=== PATIENT | male | born 1935 | race Caucasian/White ===

== ENCOUNTER → 2019-04-29 | Outpatient (CLI) | payer OTHER ==
--- NOTE | 2019-04-29 13:13 | RADIOLOGY REPORT (SQ) ---
EXAM DESCRIPTION: U/S RETROPERITON (RENAL/AORTA) COMPLETED DATE/TIME: 04/29/2019 11:30 am REASON FOR STUDY: N18.3 CHRONIC KIDNEY DISEASE, STAGE 3 (MODERATE) N18.3 CHRONIC KIDNEY DISEASE, ST AGE 3 (MODERATE) COMPARISON: None. TECHNIQUE: Dynamic and static grayscale images acquired of the kidneys and bladder and recorded on P ACS. Additional selected color Doppler and spectral images recorded. LIMITATIONS: None. FINDINGS: RIGHT KIDNEY: Normal size, 12.5 cm. Normal echogenicity. Cortical thinning. No solid or suspicious masses. 14 mm cyst. No hydronephrosis. No calcifications. LEFT KIDNEY: Surgically absent. BLADDER: c no bladder mass. Prostatic enlargement. OTHER FINDINGS: No other significant finding. IMPRESSION: Cortical thinning in the solitary remaining right kidney. Enlarged prostate gland. TECHNICAL DOCUMENTATION: JOB ID: [id number] 2010 [employer]- All Rights Reserved Reading location - IP/workstation name: [email or web address]
== END ==
LOC: RAD 10:31
PROVIDERS: ATTEND Internal Medicine Nephrology
DX: N18.3 Chronic kidney disease, stage 3 (moderate) (principal); N40.0 Benign prostatic hyperplasia without lower urinary tract symptoms
CPT/HCPCS: 76770

== ENCOUNTER → 2019-07-31 | Outpatient (CLI) | payer MEDICARE, BC ==
--- NOTE | 2019-07-31 12:12 | RADIOLOGY REPORT (SQ) ---
EXAM DESCRIPTION: CHEST PA/LATERAL IMAGES COMPLETED DATE/TIME: 07/31/2019 10:36 am REASON FOR STUDY: LLL PNEUMONIA; CHF COMPARISON: None. EXAM PARAMETERS: NUMBER OF VIEWS: Two views. TECHNIQUE: PA and lateral views of the chest were obtained. RADIATION DOSE: NA. LIMITATIONS: None. FINDINGS: LUNGS AND PLEURA: There is mild diffuse prominence of the interstitium. The dense opacity in the inferior aspect of the left hemithorax that obscures the contour of the left hemidiaphragm co uld represent a combination of pleural fluid and atelectasis. There is no pneumothorax. MEDIASTINUM AND HILAR STRUCTURES: No mediastinal or hilar contour abnormality. HEART AND VASCULAR STRUCTURES: The cardiac silhouette is enlarged. BONES: No acute findings. HARDWARE: None in the chest. OTHER: No other finding. IMPRESSION: Cardiomegaly, mild diffuse prominence of the interstitium and left pleural effusion. Cl inical correlation for signs and symptoms of volume overload/ CHF is recommended. TECHNICAL DOCUMENTATION: JOB ID: [id number] 2010 [employer]- All Rights Reserved Reading location - IP/workstation name: [email or web address]
== END ==
LOC: OD 10:14
PROVIDERS: ATTEND Internal Medicine
DX: J18.9 Pneumonia, unspecified organism (principal); I50.9 Heart failure, unspecified; I51.7 Cardiomegaly
CPT/HCPCS: 71046

== ENCOUNTER 2019-08-04 17:49 | Inpatient (IN) | payer MEDICARE, BC ==
--- NOTE | 2019-08-04 18:17 | ER Document Report ---
ED General - General Stated Complaint: POSSIBLE STROKE Time Seen by Provider: 08/04/19 17:53 Notes: 83-year-old male brought to the emergency department via EMS for possible stroke. Apparently just 1 hour prior to arrival patient fell several times at home, had left-sided weakness, right-sided facial droop, slurred speech per daughter. EMS states that when they arrived the patient was neurologically intact and alert and oriented x4. Patient denies any pain. Last known normal was 1550 per daughter. TRAVEL OUTSIDE OF THE [place] IN LAST 30 DAYS: No - Related Data Allergies/Adverse Reactions: No Known Allergies Allergy (Unverified 08/04/19 17:55) Past Medical History - General Information source: Patient, Relative - Social History Smoking Status: Unknown if Ever Smoked Family History: Hypertension Review of Systems - Review of Systems Constitutional: No symptoms reported EENT: See HPI - Facial droop Cardiovascular: Other - Fall but no loss consciousness. Respiratory: No symptoms reported Musculoskeletal: See HPI - Hit left elbow in the fall. Neurological/Psychological: See HPI -: Yes All other systems reviewed and negative Physical Exam - Vital signs Vitals: Pulse Resp BP Pulse Ox 110 H 19 166/60 H 97 08/04/19 17:53 08/04/19 17:53 08/04/19 17:53 08/04/19 17:53 - Notes Notes: GENERAL: Alert, interacts well. No acute distress. HEAD: Normocephalic, atraumatic EYES: Pupils equal, round and reactive to light, extraocular movements intact. ENT: Oral mucosa moist, tongue midline. NECK: Full range of motion, supple, trachea midline. LUNGS: Clear to auscultation bilaterally, no wheezes, rales or rhonchi, no respiratory distress. HEART: Regular rate and rhythm, no murmurs, gallops, rubs. ABDOMEN: Soft, nontender, nondistended, bowel sounds present in all 4 quadrants. EXTREMITIES: Moves all 4 extremities spontaneously, no edema, radial and dorsalis pedis pulses 2/4 bilaterally. No cyanosis. NEUROLOGICAL: Awake, disoriented, has some difficulty following commands including being asked to smile. Slow to lift his legs. 3/5 muscle strength in the left upper and lower extremity. Very slight left nasolabial fold flattening but normalizes with smile. Speech is not slurred. See NIH stroke scale for detailed assessment. PSYCH: Normal mood, normal affect. SKIN: Warm, Dry, superficial abrasions to the left elbow. Course - Re-evaluation Re-evalutation: 08/04/19 20:54 This is a late note, patient CT scan of the head came back and did not reveal a bleed, patient has no absolute contraindications to this, CBC and other blood work are not available at this time. Patient has hit to the 3-hour cadence post stroke, discussed with daughter Shy and patient risks and benefits of receiving TPA including approximately 30% chance of improvement and 6 to 8% chance of bleeding into the brain and worsening of condition up to and including . Patient and daughter both request to receive the TPA. Patient was also sent for a CTA of the head and neck to look for possible large vessel occlusion as this is affecting both left upper and lower extremity and patient may be a candidate for mechanical thrombectomy. We did discuss that there is a risk to his remaining kidney as there is a dye load but we will provide gentle hydration. Discussed with patient and daughter that the other option is to not do the CT angiogram and then we will not know whether or not he is a candidate. Patient and daughter agree to CT angiogram of the head and neck. 08/04/19 20:59 After receiving TPA patient initially had some episodes of vomiting which were resolved with Zofran, now at 9 PM the patient is showing improvement, increasing strength in the left arm. Blood work is back and CBC does show anemia with a hemoglobin 8.5 and low platelets of 70 which are a relative contraindication to TPA however we did not delay the administration of the TPA in order to get the platelets back as he was already at the 3-hour cadence. INR slightly prolonged at 1.32, CMP shows a pretty good creatinine of 1.36 considering his history of nephrectomy and other kidney surgery, CO2 slightly low at 21, troponin indeterminate 0.082, EKG is nonischemic. Head CTA 08/04/19 00:00 IMPRESSION: 1. No intracranial aneurysm, stenosis, or branch occlusion. 2. No significant internal carotid artery stenosis by NASCET criteria. 3. Moderate left pleural effusion partially visualized. 4. Prominent mediastinal lymph nodes, indeterminate. Consider dedicated CT of the chest. Neck CTA 08/04/19 00:00 IMPRESSION: 1. No intracranial aneurysm, stenosis, or branch occlusion. 2. No significant internal carotid artery stenosis by NASCET criteria. 3. Moderate left pleural effusion partially visualized. 4. Prominent mediastinal lymph nodes, indeterminate. Consider dedicated CT of the chest. Chest X-Ray 08/04/19 17:53 IMPRESSION: Slight increase in small left basilar pleural effusion with compressive atelectasis/consolidation. Head CT 08/04/19 17:53 IMPRESSION: 1. No acute intracranial hemorrhage, mass, or evidence of acute territorial infarct. 2. Mild chronic small vessel ischemic change. EVIDENCE OF ACUTE STROKE: NO. Elbow X-Ray 08/04/19 17:54 IMPRESSION: NEGATIVE STUDY OF THE LEFT ELBOW. NO RADIOGRAPHIC EVIDENCE OF ACUTE INJURY. Discussed patient with Tomas Franklin the APC from the ICU for possible admission and he is checking to see if we have the capacity in our hospital at this time to accept this patient. 08/04/19 21:25 He accepts the patient to his service in the ICU. Patient and are both aware, I did personally recheck this patient, patient is now able to squeeze my hand, wakes up as soon as I walk into the room and smiles at me, is able to speak without any difficulty. On initial examination I would not of said his speech was slurred however his speech is markedly clearer than it was when I first saw him. - Vital Signs Vital signs: Temp Pulse Resp BP Pulse Ox 98.5 F 94 18 107/95 H 95 08/04/19 18:07 08/04/19 21:00 08/04/19 21:46 08/04/19 21:46 08/04/19 21:46 - Laboratory Result Diagrams: 08/04/19 19:10 08/04/19 18:17 Laboratory results interpreted by me: 08/04/19 08/04/19 08/04/19 18:17 18:17 19:10 RBC 4.30 L Hgb 8.5 L Hct 26.6 L MCV 62 L MCH 19.7 L MCHC 31.9 L RDW 21.0 H Plt Count 70 L PT 16.5 H APTT 61.0 H Chloride 112 H Carbon Dioxide 21 L Creatinine 1.36 H Est GFR (MDRD) Non-Af 50 L Glucose 142 H Alkaline Phosphatase 984 H - EKG Interpretation by Me Additional EKG results interpreted by me: 08/04/19 21:29 EKG shows sinus rhythm with Mobitz type I block, left anterior hemiblock, T wave inversions in the 2 and aVL, no ST segment elevations or depressions, there is poor R wave progression per my interpretation. Critical Care Note - Critical Care Note Total time excluding time spent on procedures (mins): 65 Discharge - Discharge Clinical Impression: Left-sided cerebrovascular accident (CVA), Mobitz (type) I (Wenckebach's) atrioventricular block Abrasion of left arm Qualifiers: Encounter type: initial encounter Qualified Code(s): S40.812A - Abrasion of left upper arm, initial encounter Fall at home Qualifiers: Encounter type: initial encounter Qualified Code(s): W19.XXXA - Unspecified fall, initial encounter Condition: Fair Disposition: ADMITTED INPATIENT Admitting Provider: Emelia (Street Light Servicer Helper) Unit Admitted: ICU ED NIH Stroke Scale - NIH Stroke Scale When completed:: Before Alteplase *: 1. NIH scale should be completed with appropriate accompanying assessment tools. *: 2. The NIH should reflect what the patient is capable of doing and should not be coached by the clinician. 1a. Level of Consciousness: 0=Alert;keenly responsive -: 1=Drowsy -: 2=Obtunded -: 3=Coma/unresponsive or reflex to noxious stimuli. 1a. Responses: 1 1b. Orientation Questions: a. What month is it? -: b. How old are you? -: 0=Answers both questions correctly. -: 1=Answers one question correctly or patient is intubated or has orotracheal trauma. -: 2=Answers neither question correctly. 1b. Responses: 1 1c. Response to commands: a. Open and close eyes? -: b. Manufacturing Plant Technician and release hand? -: Credit is given despite weakness. Demonstration of task is permitted. Substitute command if hands cannot be used. -: 0=Performs both tasks correctly -: 1=Performs one task correctly -: 2=Performs neither task correctly 1c. Responses: 0 2. Gaze: Establish eye contact and instruct patient to "Follow my finger" -: 0=Normal -: 1=Partial gaze palsy. Gaze is abnormal in one or both eyes, but where forced deviation or total gaze paresis is not present. -: 2=Forced deviation or total gaze paresis. 2. Responses: 0 3. Visual Feliz: Sees fingers in all four quadrants. -: 0=No visual loss. -: 1=Partial hemianopsia. -: 2=Complete hemianopsia. -: 3=Bilateral hemianopsia (including Cortical blindness) 3. Responses: 0 4. Facial Movement: Instruct patient to: -: a. Show me your teeth -: b. Raise your eyebrows -: c. Close your eyes -: d. Smile -: 0=Normal symmetrical movement -: 1=Minor paralysis (flattened nasolabial fold, asymmetry on smiling). -: 2=Partial paralysis (total or near total paralysis of lower face). -: 3=Complete paralysis of upper and lower face 4. Responses: 1 5. Motor functions (left arm): Alternate sides and extend each arm with palms down (90 degrees if sitting or 45 degrees for supine). -: 0=No drift;limb holds for full 10 seconds. -: 1=Drift; limb holds but drifts down before full 10 seconds, but does not hit bed. -: 2=Some effort against gravity; limb cannot get to or maintain position. -: 3=No effort against gravity; limb falls. -: 4=No movement. -: UN=Amputation, joint fusion, explain in comments. 5. Responses (left arm): 2 5. Motor Functions (right arm): Alternate sides and extend each arm with palms down (90 degrees if sitting or 45 degrees for supine). -: 0=No drift;limb holds for full 10 seconds. -: 1=Drift; limb holds but drifts down before full 10 seconds, but does not hit bed. -: 2=Some effort against gravity; limb cannot get to or maintain position. -: 3=No effort against gravity; limb falls. -: 4=No movement. -: UN=Amputation, joint fusion, explain in comments. 5. Responses (right arm): 0 6. Motor Functions (left leg): With patient lying supine, alternate sides and extend each leg (30 degrees always while supine). -: 0=No drift, leg holds position for full 5 seconds -: 1=Drift; leg falls before full 5 seconds but does not hit bed. -: 2=Some effort against gravity, leg falls to bed but some effort against gravity. -: 3=No effort against gravity, leg falls to bed immediately. -: 4=No movement. -: UN=Amputation, joint fusion; explain in comments. 6. Responses (left leg): 2 6. Motor Functions (right leg): With patient lying supine, alternate sides and extend each leg (30 degrees always while supine). -: 0=No drift, leg holds position for full 5 seconds -: 1=Drift; leg falls before full 5 seconds but does not hit bed. -: 2=Some effort against gravity, leg falls to bed but some effort against gravity. -: 3=No effort against gravity, leg falls to bed immediately. -: 4=No movement. -: UN=Amputation, joint fusion; explain in comments. 6. Responses (right leg): 0 7. Limb Ataxia: With eyes open instruct patient to: -: a. "Touch your finger to your nose". -: b. "Touch your heel to your rashid" -: 0=Absent -: 1=Present in one limb. -: 2=Present in two limbs. -: UN=Amputation or joint fusion; explain in comments. 7. Responses: 0 8. Sensory: Test sensation using pinprick or noxious stimuli. Test as many body parts as possible. -: 0=Normal;no sensory loss -: 1=Mile to moderate sensory loss (patient feels pin prick but is less sharp on affected side). -: 2=Severe or total sensory loss. 8. Responses: 1 9. Best Language: Instruct patient to: -: a. "Describe what you see in this picture." -: b. "Name the items in this picture." -: c. "Read these sentences." -: 0=No aphasia, normal -: 1=Mild to moderate aphasia. -: 2=Severe aphasia -: 3=Mute, global aphasia, no usable speech or auditory comprehension. 9. Responses: 0 10. Articulation, Dysarthia: Instruct patient to: -: "Read these words" or "Repeat these words" -: 0=Normal -: 1=Mild to moderate; patient may slur some words but can be understood without difficulty. -: 2=Severe; patients speech so slurred as to be unintelligible in the absence of dysphasia. -: UN=Intubated or other physical barrier, explain in comments. 10. Responses: 0 11. Extinction or inattention: 0=No abnormality -: 1= Visual, tactile, auditory, spatial, or personal inattention or extinction to bilateral simulation in one or the sensory modalities. -: 2=Profound blas-inattention or blas-inattention to more than one modality; d oes not recognize own hand. 11. Responses: 0 Total Score: 8 ED Alteplase Inc/Exc Criteria - Date/Time patient last known well: Date/Time: 08/04/2019 15:50 - Date/Time patient arrived in ED: _: 08/04/2019 17:49 - Inclusion Criteria: 1: Patient presented to ED within 3 hours of acute ischemic stroke symptom o nset? -: Yes 2: Did baseline CT exclude intracranial hemorrhage and/or other risk factors? -: Yes 3: Is the age of the patient 18 years of age or greater? -: Yes : If any of the above questions are answered "NO" then stop, patient is not a candidate for Alteplase, : If all of the above questions are answered "YES" then continue with Exclusion Criteria. - Exclusion Criteria: 1: Is there evidence of intracranial hemorrhage on baseline CT? -: No 2: Is there suspicion of subarachnoid hemorrhage (even if CT negative)? -: No 3: Is there a history of serious head trauma, recent previous stroke or [place] within 3 months? -: No 4: Does the patient have a clinical presentation consistent with [place] or post-[place] pericarditis? -: No 5: Is there history of intracranial hemorrhage? -: No 6: On repeated measurement is Systolic BP greater than 185mmHg or Diastolic BP greater that 110 mmHg and is aggressive treatment needed to reduce blood pressure to these limits (e.g. constant infusion of an anti-hypertensive)? -: No 7: Did the patient awake with stroke symptoms? -: No 8: Has the patient had a lumbar puncture or an arterial puncture at a non- compressile site within 7 days? -: No 9: With in the last 14 days did the patient have surgery or major trauma? -: No 10: Is the patient or less than 2 weeks? -: No 11: Was there any active bleeding or acute trauma? -: No 12: Does the patient have intracranial neoplasm, arteriovenous malformation or aneurysm? -: No 13: Does the patient have abnormal glucose (less than 50 or greater than 400mg/dl)? Record glucose in Comment. -: No 14: Patient has rapidly improving symptoms at the time Alteplase is to be Administered. -: No 15: Does the patient have any risks for bleeding, including but not limited to: a.: Current use of Coumadin with PT greater than 15 seconds or INR greater than 1.7. b.: Current use of Pradaxa (Dabigatran). c.: Heparin administereed within the past 48 hours and PTT elevated. d.: Platelet count less than 100,000/mm. e.: Major surgery or serious trauma within 14 days. f.: Gastrointestinal or gynecological urinary bleeding within 14 days. g.: Myocardial Infarction ([place]) within 3 months. : If the answer to any of the above questions is "YES" then stop, the patient is not a candidate for Alteplase. : If the answer to all of the above questions is "NO" then the patient may be eligible for the Administration of Alteplase. : If the patient is noted to have seizure activity at onset of Stroke symptoms; Consult Neurologist for further evaluation. - The patient is: -: Included and is eligible to receive Alteplase. *Initiate bed placement at higher level of care* Reviewed risks & benefits of thrombolytic therapy: I have reviewed the risks and benefits of thrombolytic therapy with the patient and/or his/her family. Yes - Daughter Shy and patient accept TPA -: Excluded and not eligible to receive Alteplase for the above exclusions. -: Excluded and not eligible to receive Alteplase for other reasons (specify in comments): - Diagnosis of TIA: -: Patient presented with transient symptoms that are now resolved and no other neurologic findings are currently present. List symptoms in comments. -: Patient is NOT a candidate for tPA. -: ____(put name in comment) has been consulted for admission and continued evaluation of risk factor assessment.
[2019-08-04 18:36] LABS: INTERNATIONAL RATION (INR) 1.32; PROTHROMBIN TIME 16.5 SEC (11.4-15.4)
--- NOTE | 2019-08-04 18:36 | RADIOLOGY REPORT (SQ) ---
EXAM DESCRIPTION: CT HEAD WITHOUT IMAGES COMPLETED DATE/TIME: 08/04/2019 5:11 pm REASON FOR STUDY: possble CVA, left weakness, fall at home COMPARISON: None. TECHNIQUE: Axial images acquired through the brain without intravenous contrast. Images reviewed wi th bone, brain and subdural windows. Additional sagittal and coronal reconstructions were generated. Images stored on PACS. All CT scanners at this facility use dose modulation, iterative reconstruction, and/or weight based d osing when appropriate to reduce radiation dose to as low as reasonably achievable (ALARA). [facility]: Dose Right [facility]: CareDose [facility]: Dose Right [facility]: Teradose 4D [facility]: Smart FetchDog RADIATION DOSE: CT Rad equipment meets quality standard of care and radiation dose reduction techniq ues were employed. CTDIvol: 53.2 mGy. DLP: 1017 mGy-cm. mGy. LIMITATIONS: None. FINDINGS: VENTRICLES: Normal size and contour. CEREBRUM: No masses. No hemorrhage. No midline shift. No evidence for acute infarction. Normal gra y-white matter differentiation. Mild patchy periventricular and deep white matter hypodense attenuat ion consistent with mild chronic small vessel ischemic change. CEREBELLUM: No masses. No hemorrhage. No alteration of density. No evidence for acute infarction. EXTRAAXIAL SPACES: No fluid collections. No masses. ORBITS AND GLOBE: No intra- or extraconal masses. Normal contour of globe without masses. CALVARIUM: No fracture. PARANASAL SINUSES: No fluid or mucosal thickening. SOFT TISSUES: No mass or hematoma. OTHER: No other significant finding. IMPRESSION: 1. No acute intracranial hemorrhage, mass, or evidence of acute territorial infarct. 2. Mild chronic small vessel ischemic change. EVIDENCE OF ACUTE STROKE: NO. COMMENT: Findings were called to Dr. Molina on 08/04/2019 at 1827 hours. Quality ID # [id number]: Final reports with documentation of one or more dose reduction techniques (e.g., Au tomated exposure control, adjustment of the mA and/or kV according to patient size, use of iterative reconstruction technique) TECHNICAL DOCUMENTATION: JOB ID: [id number] 2010 [employer]- All Rights Reserved Reading location - IP/workstation name: [email or web address]
--- NOTE | 2019-08-04 18:37 | RADIOLOGY REPORT (SQ) ---
EXAM DESCRIPTION: ELBOW LEFT AP/LATERAL IMAGES COMPLETED DATE/TIME: 08/04/2019 5:19 pm REASON FOR STUDY: fell on left elbow COMPARISON: None. NUMBER OF VIEWS: Two views TECHNIQUE: AP and lateral radiographic images acquired of the left elbow. LIMITATIONS: None. FINDINGS: MINERALIZATION: Normal. BONES: No acute fracture or dislocation. No worrisome bone lesions. JOINT: No effusion. SOFT TISSUES: No soft tissue swelling. No foreign body. OTHER: No other significant finding. IMPRESSION: NEGATIVE STUDY OF THE LEFT ELBOW. NO RADIOGRAPHIC EVIDENCE OF ACUTE INJURY. TECHNICAL DOCUMENTATION: JOB ID: [id number] [employer]- All Rights Reserved Reading location - IP/workstation name: [email or web address]
--- NOTE | 2019-08-04 18:38 | RADIOLOGY REPORT (SQ) ---
EXAM DESCRIPTION: CHEST SINGLE VIEW IMAGES COMPLETED DATE/TIME: 08/04/2019 5:19 pm REASON FOR STUDY: Possible CVA, left weakness, fall at home COMPARISON: 07/31/2019 EXAM PARAMETERS: NUMBER OF VIEWS: One view. TECHNIQUE: Single frontal radiographic view of the chest acquired. RADIATION DOSE: NA LIMITATIONS: None. FINDINGS: LUNGS AND PLEURA: Small left pleural effusion with compressive atelectasis/ consolidation at the left lung base, slightly increased from previous. The right lung remains clear. No right eff usion. No pneumothorax. MEDIASTINUM AND HILAR STRUCTURES: No masses. Contour normal. HEART AND VASCULAR STRUCTURES: Heart normal in size. Normal vasculature. BONES: No acute findings. HARDWARE: None in the chest. OTHER: No other significant finding. IMPRESSION: Slight increase in small left basilar pleural effusion with compressive atelectasis/cons olidation. TECHNICAL DOCUMENTATION: JOB ID: [id number] 2010 [employer] All Rights Reserved Reading location - IP/workstation name: [email or web address]
[2019-08-04 18:54] LABS: ALBUMIN 3.7 g/dL (3.5-5.0); ALKALINE PHOSPHATASE 984 U/L (38-126); ANION GAP 7 (5-19); ASPARTATE AMINO TRANSFERASE 35 U/L (17-59); BILIRUBIN,TOTAL 1.2 mg/dL (0.2-1.3); BLOOD UREA NITROGEN 15 mg/dL (7-20); CALCIUM 8.9 mg/dL (8.4-10.2); CARBON DIOXIDE 21 mmol/L (22-30); CHLORIDE 112 mmol/L (98-107); CREATINE KINASE 60 U/L (55-170); GLUCOSE 142 mg/dL (75-110); POTASSIUM 4.5 mmol/L (3.6-5.0); TOTAL PROTEIN 6.5 g/dL (6.3-8.2)
[2019-08-04] MEDS ORDERED: ALTEPLASE INJ 100 MG VIAL IV ONE (19:02)
[2019-08-04 19:06] LABS: CREATINE KINASE MB 0.55 ng/mL (<4.55)
[2019-08-04 19:09] LABS: TROPONIN I 0.082 ng/mL
[2019-08-04] MEDS ORDERED: ONDANSETRON HCL INJ/PF 4 MG/2 ML SDV IV ONE (19:32)
[2019-08-04 19:35] LABS: HEMATOCRIT 26.6 % (37.9-51.0); HEMOGLOBIN 8.5 g/dL (13.5-17.0); MEAN CORPUSCULAR HEMOGLOBIN 19.7 pg (27.0-33.4); MEAN CORPUSCULAR HGB CONC 31.9 g/dL (32.0-36.0); WHITE BLOOD COUNT 5.4 10^3/uL (4.0-10.5)
[2019-08-04 20:02] LABS: MEAN CORPUSCULAR VOLUME 62 fl (80-97); PLATELET COUNT 70 10^3/uL (150-450)
--- NOTE | 2019-08-04 20:07 | RADIOLOGY REPORT (SQ) ---
EXAM DESCRIPTION: CTA NECK; CTA HEAD IMAGES COMPLETED DATE/TIME: 08/04/2019 6:37 pm REASON FOR STUDY: Left sided weakness, r/o LVO . History of nephrectomy. Stroke alert. COMPARISON: CT head same date TECHNIQUE: Post IV contrast scanning, thin section axial imaging through the brain to evaluate the a rterial structures. Source and MIP images are saved and reviewed on PACS. Axial dynamic scanning technique with dynamic contrast enhancement through the extra-cranial carotid and vertebral arteries. Multiplanar reconstruction. 3-D MIPS and Volume-rendered images acquired at the workstation and saved to PACS. Images are reviewed in soft tissue, bone, lung windows. Advanced 3D imaging as volume-rendering, MIPs, SSD performed? yes All CT scanners at this facility use dose modulation, iterative reconstruction, and/or weight based d osing when appropriate to reduce radiation dose to as low as reasonably achievable (ALARA). [facility]: Dose Right [facility]: CareDose [facility]: Dose Right [facility]: Teradose 4D [facility]: Press CONTRAST TYPE AND DOSE: contrast/concentration: Isovue 350.00 mg/ml; Total Contrast Delivered: 70.0 ml; Total Saline Delivered: 65.0 ml RENAL FUNCTION: Creatinine 1.36 today LIMITATIONS: None. FINDINGS: CTA HEAD: KAKE OF [place]: The anterior, middle, posterior cerebral arteries are all patent. No evidence of a neurysm or focal stenosis. POSTERIOR CIRCULATION: The distal vertebral arteries are patent as is the basilar artery. No aneurysm . BRAIN: No gross enhancing lesions as visualized. The superior cerebral hemispheres are not included in the field of view. BONES: Intact as visualized. SINUSES: No fluid or mucosal thickening. OTHER: Moderate left pleural effusion. Prominent mediastinal lymph nodes, for example an aortic or p ulmonary window node measuring 1.4 x 1.1 cm. CTA NECK: AORTIC ARCH: Normal three-vessel origin. Tortuosity of the great vessels. Bilateral subclavian [place] are patent. No dissection. RIGHT CAROTIDS: Patent common, internal and external carotid arteries without suggestion of significa nt stenosis or irregular plaque. No dissection. RIGHT VERTEBRAL: Patent. No dissection. LEFT CAROTIDS: Patent common, internal and external carotid arteries without suggestion of significan t stenosis or irregular plaque. No dissection. LEFT VERTEBRAL: Patent. No dissection. OTHER: No other significant finding. OTHER: 3-D reconstructions confirm findings. IMPRESSION: 1. No intracranial aneurysm, stenosis, or branch occlusion. 2. No significant internal carotid artery stenosis by NASCET criteria. 3. Moderate left pleural effusion partially visualized. 4. Prominent mediastinal lymph nodes, indeterminate. Consider dedicated CT of the chest. TECHNICAL DOCUMENTATION: JOB ID: [id number] Quality ID # [id number]: Final reports with documentation of one or more dose reduction techniques (e.g., Au tomated exposure control, adjustment of the mA and/or kV according to patient size, use of iterative reconstruction technique) 2010 [employer]- All Rights Reserved Reading location - IP/workstation name: [email or web address]
--- NOTE | 2019-08-04 20:07 | RADIOLOGY REPORT (SQ) ---
EXAM DESCRIPTION: CTA NECK; CTA HEAD IMAGES COMPLETED DATE/TIME: 08/04/2019 6:37 pm REASON FOR STUDY: Left sided weakness, r/o LVO . History of nephrectomy. Stroke alert. COMPARISON: CT head same date TECHNIQUE: Post IV contrast scanning, thin section axial imaging through the brain to evaluate the a rterial structures. Source and MIP images are saved and reviewed on PACS. Axial dynamic scanning technique with dynamic contrast enhancement through the extra-cranial carotid and vertebral arteries. Multiplanar reconstruction. 3-D MIPS and Volume-rendered images acquired at the workstation and saved to PACS. Images are reviewed in soft tissue, bone, lung windows. Advanced 3D imaging as volume-rendering, MIPs, SSD performed? yes All CT scanners at this facility use dose modulation, iterative reconstruction, and/or weight based d osing when appropriate to reduce radiation dose to as low as reasonably achievable (ALARA). [facility]: Dose Right [facility]: CareDose [facility]: Dose Right [facility]: Teradose 4D [facility]: [employer] CONTRAST TYPE AND DOSE: contrast/concentration: Isovue 350.00 mg/ml; Total Contrast Delivered: 70.0 ml; Total Saline Delivered: 65.0 ml RENAL FUNCTION: Creatinine 1.36 today LIMITATIONS: None. FINDINGS: CTA HEAD: [place] OF [place]: The anterior, middle, posterior cerebral arteries are all patent. No evidence of a neurysm or focal stenosis. POSTERIOR CIRCULATION: The distal vertebral arteries are patent as is the basilar artery. No aneurysm . BRAIN: No gross enhancing lesions as visualized. The superior cerebral hemispheres are not included in the field of view. BONES: Intact as visualized. SINUSES: No fluid or mucosal thickening. OTHER: Moderate left pleural effusion. Prominent mediastinal lymph nodes, for example an aortic or p ulmonary window node measuring 1.4 x 1.1 cm. CTA NECK: AORTIC ARCH: Normal three-vessel origin. Tortuosity of the great vessels. Bilateral subclavian [place] are patent. No dissection. RIGHT CAROTIDS: Patent common, internal and external carotid arteries without suggestion of significa nt stenosis or irregular plaque. No dissection. RIGHT VERTEBRAL: Patent. No dissection. LEFT CAROTIDS: Patent common, internal and external carotid arteries without suggestion of significan t stenosis or irregular plaque. No dissection. LEFT VERTEBRAL: Patent. No dissection. OTHER: No other significant finding. OTHER: 3-D reconstructions confirm findings. IMPRESSION: 1. No intracranial aneurysm, stenosis, or branch occlusion. 2. No significant internal carotid artery stenosis by NASCET criteria. 3. Moderate left pleural effusion partially visualized. 4. Prominent mediastinal lymph nodes, indeterminate. Consider dedicated CT of the chest. TECHNICAL DOCUMENTATION: JOB ID: [id number] Quality ID # [id number]: Final reports with documentation of one or more dose reduction techniques (e.g., Au tomated exposure control, adjustment of the mA and/or kV according to patient size, use of iterative reconstruction technique) 2010 [employer]- All Rights Reserved Reading location - IP/workstation name: [email or web address]
[2019-08-04 20:13] LABS: ABSOLUTE LYMPHOCYTES# (MANUAL) 1.3 10^3/uL (0.5-4.7); ABSOLUTE MONOCYTES # (MANUAL) 0.5 10^3/uL (0.1-1.4); BAND NEUTROPHILS % (MANUAL) 4 % (3-5); BASOPHILS % (MANUAL) 0 % (0-2); EOSINOPHILS % (MANUAL) 1 % (0-6); HYPOCHROMASIA 2+; LYMPHOCYTES % (MANUAL) 24 % (13-45); MONOCYTES % (MANUAL) 10 % (3-13); POLYCHROMASIA 1+; SEGMENTED NEUTROPHILS % (MAN) 61 % (42-78); TOTAL CELLS COUNTED 100
[2019-08-04 20:14] LABS: ANISOCYTOSIS 2+; BURR CELLS 1+; PLATELET COMMENT DECREASED; POIKILOCYTOSIS 1+; TEAR DROP CELLS 1+
--- NOTE | 2019-08-04 21:17 | EKG REPORT ---
SEVERITY:- ABNORMAL ECG - SINUS RHYTHM FIRST DEGREE AV BLOCK PROBABLE LEFT ATRIAL ABNORMALITY LEFT ANTERIOR FASCICULAR BLOCK : Confirmed by: Den Cobian MD 04-Aug-2019 21:17:07
[2019-08-04] MEDS ORDERED: DEXTROSE 50%-WATER 25 GM/50 ML DISP.SYRIN IV PRN ×2 (21:23)
[2019-08-04] MEDS ORDERED: GLUCAGON,HUMAN RECOMB 1 MG INJ IM PRN (21:23)
[2019-08-04] MEDS ORDERED: DEXTROSE 40% GEL 15 GM TUBE PO PRN ×2 (21:23)
[2019-08-04] MEDS: PANTOPRAZOLE SODIUM 40 MG VIAL IV SCH (23:42)
[2019-08-04] MEDS ORDERED: PROMETHAZINE HCL INJ 25 MG/1 ML VIAL IV ONE (23:59)
[2019-08-05] MEDS ORDERED: RINGERS SOLUTION,LACTATED 1,000 ML IV PRN (00:49)
[2019-08-05] MEDS ORDERED: RINGERS SOLUTION,LACTATED 500 ML IV ONE (01:00)
[2019-08-05] MEDS: PANTOPRAZOLE SODIUM 40 MG VIAL IV SCH (01:13)
[2019-08-05] MEDS ORDERED: ETOMIDATE INJ/PF 20 MG/10 ML SDV IV ONE ×2 (02:07→04:41)
[2019-08-05] MEDS ORDERED: FENTANYL CITRATE INJ/PF 100 MCG/2 ML AMPUL ONE (02:14)
[2019-08-05] MEDS ORDERED: MIDAZOLAM 2 MG/2 ML INJ ONE ×2 (02:16→02:31)
[2019-08-05] MEDS ORDERED: EPINEPHRINE INJ 1 MG/10 ML DISP.SYRIN ONE ×2 (02:35→03:12)
--- NOTE | 2019-08-05 03:07 | RADIOLOGY REPORT (SQ) ---
CLINICAL HISTORY: blown pupil post TPA; R/O hemorrhage COMPARISON: 08/04/2019. TECHNIQUE: CT HEAD WITHOUT IV CONTRAST on 08/05/2019 2:02 AM CDT This exam was performed according to our departmental dose-optimization program, which includes automated exposure control, adjustment of the mA and/or kV according to patient size and/or use of iterative reconstruction technique. FINDINGS: There is a large mixed density right frontoparietal subdural hematoma measuring 1.6 cm and depth. There is a large parenchymal hemorrhage in the right frontal lobe measuring 4.2 cm. There is subdural blood along the falx. There is subarachnoid blood mostly in the right frontal lobe. There is severe mass effect with right to left midline shift of 1.8 cm. There is small amount of intraventricular blood. Mclean-white differentiation is preserved. There is no hydrocephalus. There is no significant volume loss for age. There are mild patchy hypodensities within the periventricular and subcortical white matter, consistent with microangiopathic ischemic changes. The calvarium is intact. Orbits and globes are unremarkable. The paranasal sinuses are clear. Mastoid air cells are clear. IMPRESSION: Extensive acute areas of hemorrhage with significant midline shift.
--- NOTE | 2019-08-05 03:18 | RADIOLOGY REPORT (SQ) ---
AP Portable chest: 08/05/2019 2:16 AM CDT History: 83-year old patient with respiratory failure. Comparison: Chest radiograph performed 08/04/2019. Findings: The cardiomediastinal silhouette is enlarged. No pneumothorax is seen. There are airspace opacities at the left lung base associated with a trace left effusion. These are similar to prior imaging. Interstitial and central vascular prominence is seen. An endotracheal tube tip projects approximately 4.3 cm above the francy. Impression: There are airspace opacities at the left lung base associated with trace left effusion. These are similar to prior imaging.
[2019-08-05] MEDS ORDERED: LEVETIRACETAM INJ/PF 500 MG/5 ML SDV IV STA (03:30)
[2019-08-05] MEDS ORDERED: NORMAL SALINE 250 ML IV PRN (03:30)
[2019-08-05] MEDS ORDERED: NORMAL SALINE 1000 ML 1,000 ML IV ONE (03:31)
[2019-08-05 03:32] LABS: ARTERIAL BLOOD BASE EXCESS -8.8 mmol/L; ARTERIAL BLOOD FIO2 30%; ARTERIAL BLOOD H2CO3 0.96 mmol/L (1.05-1.35); ARTERIAL BLOOD HCO3 16.4 mmol/L (20-24); ARTERIAL BLOOD PCO2 31.8 mmHg (35-45); ARTERIAL BLOOD PH 7.33 (7.35-7.45); ARTERIAL BLOOD TOTAL CO2 17.3 mmol/L (23-27)
[2019-08-05] MEDS ORDERED: LEVETIRACETAM 1000 MG/NACL-ISO 1,000 MG/100 ML RTUPB IV ONE (03:37)
[2019-08-05] MEDS ORDERED: MANNITOL 25% INJ 12.5 GM/50 ML VIAL IV ONE ×2 (03:38→03:50)
[2019-08-05] MEDS ORDERED: MANNITOL 500 ML IV ONE (03:42)
--- NOTE | 2019-08-05 03:53 | CRITICAL CARE ADMISSION REPORT ---
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 Mr Saxena reportedly fell several times at home 1 hr prior to arrival associated with slurred speech, right-sided facial droop, and left upper extremity weakness per the patient's daughter. The patient was reportedly A&O x4 and neurologically intact when EMS arrived on scene. Last known normal time was 15:50 PM per daughter. Patient reportedly "out of it" initially in the ED per the daughter and has shown signficant improvement in mental status. Patient received TPA in the ED after obtaining CT without as well as CTA head/neck evaluating for occlusion to determine if mechanical thrombectomy was an option. No intracranial hemorrhage or large vascular occlusion were identified. After the patient received TPA, it was noted that his Hgb is 8.5 and Plt 70k which the daughter is unable to explain. She thought his most recent Plt count was 150k and he was not hospitalized for his pneumonia where one would be performing serial phlebotomy. He has bilateral hand ecchymosis which is new as of today from EMS attempting IV access several times witnessed by the daughter. He also takes a baby ASA daily for which last dose was this morning. Patient to be admitted to ICU for post-TPA administration for frequent neurological monitoring. To note, Mr Saxena's primary out of hospital providers have reportedly been discussing possible pacemaker placement in Mr Saxena. He has recently visited Dr Barragan internal IM, Dr Silvano Oglesby [facility], and Dr Bain Nephrology. History obtained from:: daughter, ED physician, medical record - Diagnosis/Plan (1) Ischemic cerebrovascular accident (CVA) Is this a current diagnosis for this admission?: Yes Plan: -s/p TPA 19:36 PM -Avoid excessive phlebotomy or IM injections x 24 hrs. -Serial neurological exams monitoring for headache or deterioration in mental status for which a head CT would be required to r/o intracranial hemorrhage. -Goal SBP <180, DBP <105 (though his SBP is currently on the lower side of normal). -Repeat head CT scheduled for 08/05/2019 at 18:00 PM (before shift change) which is post-TPA follow up to r/o hemorrhage. -Speech and Physical therapy evaluations have been ordered in advance for 08/06/2019. -Evaluate for resuming ASA 24-48 hrs post-TPA. (2) Hx of chronic congestive heart failure Is this a current diagnosis for this admission?: Yes Plan: -Sees Silvano Oglesby at [facility] in [place]. Office #[phone] -Day ICU team may call during business hours to obtain his input as well as recent echo results. -Performed bedside POCUS demonstrating hyperdynamic state with good bi ventricular contractility, respirophasic changes of IVC and both ventricles with snif test as well as just breathing for that matter. Lungs CTA with exception of diminished LLL due to effusion that has likely been present at least since his pneumonia developed. Has no lower extremity edema in which that is when he receives his Furosemide. Has been retching all day, vomited once this evening, will administer 500 mL fluid bolus x1 followed by reduced maintenance IV fluid rate. Must exercise caution with his Hx of CHF, though his global heart function appeared fairly good on POCUS performed by myself. -To note, patient is supposed to start Bumex prn 08/05/2019 and stop Lasix per his daughter. Will hold off on diuretics at this time and monitor closely for when to resume. (3) CKD (chronic kidney disease) stage 3, GFR 30-59 ml/min Is this a current diagnosis for this admission?: Yes Plan: -eGFR 41% at baseline per daughter; therefore patient currently at baseline renal function. -Renal US Apr 2019 with cortical thinning in remaining R kidney (remote L nephrectomy due to cancer). -Sees Dr Bain as outpatient. -Supposed to begin taking Bumex 1 mg prn starting 08/05/2019; holding for now as pt is hypovolemic with no s/s overload. (4) Diabetes mellitus with hyperglycemia Qualifiers: Diabetes mellitus type: type 2 Diabetes mellitus senior care insulin use: with senior care use Qualified Code(s): E11.65 - Type 2 diabetes mellitus with hyperglycemia; Z79.4 - terminal press operator (current) use of insulin Is this a current diagnosis for this admission?: Yes Plan: -Takes Linagliptin tablet and Lantus 20 units daily in AM; holding for now given NPO. -Resume when clinically indicated. -ISS q6h utilizing IV to check glucose avoiding excessive needle sticks first 24 hrs. (5) Hx of hyperparathyroidism Is this a current diagnosis for this admission?: Yes Plan: Has been taking Calcitriol which appears to be lowering his alkaline phosphatase (1200 previously per dtr report), Ca+ appears to be lower as well. Resume home Calcitriol on when able. (6) HLD (hyperlipidemia) Qualifiers: Hyperlipidemia type: unspecified Qualified Code(s): E78.5 - Hyperlipidemia, unspecified Is this a current diagnosis for this admission?: Yes Plan: Resume home Atorvastatin after cleared by speech therapy. (7) BPH (benign prostatic hyperplasia) Qualifiers: Lower urinary tract symptom presence: unspecified whether lower urinary tract symptoms present Qualified Code(s): N40.0 - Benign prostatic hyperplasia without lower urinary tract symptoms Is this a current diagnosis for this admission?: Yes Plan: Resume home Flomax & Finasteride when cleared for meds. (8) Abrasion of left arm Qualifiers: Encounter type: initial encounter Qualified Code(s): S40.812A - Abrasion of left upper arm, initial encounter Is this a current diagnosis for this admission?: Yes Plan: No need for acute intervention. Local wound care. (9) Fall at home Qualifiers: Encounter type: initial encounter Qualified Code(s): W19.XXXA - Unspecified fall, initial encounter; Y92.009 - Unspecified place in unspecified non- institutional (private) residence as the place of occurrence of the external cause Is this a current diagnosis for this admission?: Yes Plan: Fall precautions. Suspect falls today may have been caused by CVA as he does not have a history of routinely falling. (10) Mobitz (type) I (Wenckebach's) atrioventricular block Is this a current diagnosis for this admission?: Yes Plan: Telemetry. His daughter mentioned his doctors thinking about a pacemaker for a couple of years but intentionally delayed. Recently they have been discussing proceeding with pacemaker insertion. Need EP study? (11) Pleural effusion, left Is this a current diagnosis for this admission?: Yes Plan: Dtr reports left sided pneumonia 4 weeks ago. Could be parapneumonic effusion or there is the possibility of malignancy given his history of CA and prominent mediastinal lymph nodes on CT. May need chest CT in future (12) Emesis Qualifiers: Vomiting type: bilious vomiting Nausea presence: with nausea Qualified Code(s): R11.14 - Bilious vomiting Is this a current diagnosis for this admission?: Yes Plan: -Emesis appears to be dark brown bilious though there is particulate matter that is concerning for possible coffee-grounds. -Send gastric occult blood test to confirm. Already on a PPI given the TPA. -Supportive care. Phenergan x1 now in patent IV as has already received Odansetron in ED without relief and NICK Rosas informed me the QTc is <460 ms. -Monitor for ongoing emesis post TPA. We are unable to place a gastric tube the first 24 hrs given the significant risk of bleeding. -Aspiration precautions. Plan Summary: At 02:05 AM patient found to be less responsive with dilated right pupil 6 mm non-reactive to light, incomprehensible sounds, localizing with RUE to central noxious stimuli, no gag or corneal for which he was gently intubated with video laryngoscopy. He bit his lower lip clenching down immediately after intubation causing some bleeding for which a soft bite block was created with 4x4's and tape followed by placing between his upper/lower teeth. Update 02:55 AM: completed head CT non-contrast noting significant right hemispheric intracranial hemorrhage. It appears there is multiple types of hemorrhage including IPH, SAH, SDH, and possibly Dr Kapoor notified. Calling [facility] first then [facility] if no acceptance. Spoke with FELI Rangel Lead Nitrate Processor at [facility] and the patient has been accepted for transfer for which he will be transported by air. Her recommendations are to administer 10 of Cryoprecipitate now to reverse TPA, 1L of normal saline as a bolus followed by Mannitol for which I will give 1.5 g/kg as a bolus dose, and 1 g of Levetiracetam for seizure prophylaxis. I will call and speak with the daughter to fill her in on the events above as I have been busy taking care of the patient and immediately coordinating care. Past Medical History Cardiac Medical History: Reports: Congestive Heart Failure, Hyperlipidema Denies: Atrial Fibrillation, Coronary Artery Disease, DVT, Myocardial Infarction, Hypertension, Peripheral Vascular Disease, Pulmonary Embolism Pulmonary Medical History: Reports: Pneumonia - diagnosed ~4 weeks ago at [facility] in the ED then sent home w/ Levaquin Denies: Asthma, Bronchitis, Chronic Obstructive Pulmonary Disease (COPD), Intubation EENT Medical History: Denies: None Neurological Medical History: Denies: Ischemic CVA, Migraine, Multiple Sclerosis, Seizures Endocrine Medical History: Reports: Diabetes Mellitus Type 2, Other - hyperparathyroidism Renal/ Medical History: Reports: Chronic Kidney Disease Malignancy Medical History: Reports: Colorectal Cancer - colon CA s/p laparoscopic partial colectomy, Renal (Kidney) Cancer - s/p laparoscopic left nephrectomy GI Medical History: Denies: Cirrhosis, Crohn's Disease, Diverticulitis, Gastroesophageal Reflux Disease, Hepatitis Musculoskeltal Medical History: Denies: Arthritis, Fibromyalgia Skin Medical History: Reports: None Psychiatric Medical History: Denies: Alcohol Dependency, Bipolar Disorder Traumatic Medical History: Reports: None Hematology: 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 Infectious Medical History: Reports: None Past Surgical History Past Surgical History: Reports: Other - laparoscopic left nephrectomy, laparoscopic partial bowel resection Social/Family History - Social History Smoking Status: Unknown if Ever Smoked Hx Recreational Drug Use: No Hx Prescription Drug Abuse: No - Family History Family History: DM, Malignancy - colon and renal cancer s/p partial colectomy a nd left nephrectomy - Medication/Allergies Allergies/Adverse Reactions: No Known Allergies Allergy (Unverified 08/04/19 17:55) Review of Systems ROS unobtainable: Other - obtained with daughter present as patient unreliable and confused Constitutional: ABSENT: chills, fatigue, fever(s), headache(s), night sweats Eyes: ABSENT: visual disturbances Ears: ABSENT: hearing changes Nose, Mouth, and Throat: ABSENT: mouth pain, sore throat, vertigo Cardiovascular: ABSENT: chest pain, dyspnea on exertion, edema, palpitations Respiratory: ABSENT: cough, dyspnea, hemoptysis, sputum Gastrointestinal: PRESENT: dysphagia - daughter reports patient has been doing weird stuff with his swallowing intermittently by also "swallowing air with what's in his mouth", other - has been wretching but no active vomiting per daughter whom has also been with him in the ED. ABSENT: abdominal pain, diarrhea - though he has had it recently, hematemesis, hematochezia, vomiting Genitourinary: ABSENT: dysuria, hematuria Musculoskeletal: ABSENT: back pain, deformity, joint swelling, muscle weakness Integumentary: ABSENT: diaphoresis, erythema, rash, wounds Neurological: PRESENT: confusion, frequent falls - today only Psychiatric: ABSENT: hallucinations Endocrine: ABSENT: cold intolerance, heat intolerance Hematologic/Lymphatic: ABSENT: easy bleeding, easy bruising - denies but his hands indicate otherwise, takes baby aspirin-last dose today, also with thrombocytopenia on lab work Physical Exam Vital Signs: Temp Pulse Resp BP Pulse Ox 98.5 F 126 H 18 107/95 H 95 08/04/19 18:07 08/04/19 21:15 08/04/19 21:46 08/04/19 21:46 08/04/19 21:46 Intake & Output 08/03/19 08/04/19 08/05/19 06:59 06:59 06:59 Weight 89.8 kg Weight/Height Weight 89.8 kg Height 5 ft 8.5 in General appearance: PRESENT: no acute distress, cooperative, well-developed Head exam: PRESENT: atraumatic, normocephalic Eye exam: PRESENT: conjunctiva pink, EOMI, PERRLA. ABSENT: nystagmus, periorbital swelling, scleral icterus Ear exam: PRESENT: normal external ear exam Mouth exam: PRESENT: moist, neck supple, tongue midline Teeth exam: ABSENT: dental tenderness Throat exam: ABSENT: post pharyngeal erythema Neck exam: PRESENT: full ROM. ABSENT: JVD, lymphadenopathy, tenderness, tra cheal deviation Respiratory exam: PRESENT: clear to auscultation spencer Cardiovascular exam: PRESENT: +S1, +S2, tachycardia Pulses: PRESENT: normal radial pulses, +2 pedal pulses bilateral Vascular exam: PRESENT: normal capillary refill GI/Abdominal exam: PRESENT: normal bowel sounds, soft. ABSENT: distended, firm, guarding, rebound, rigid, tenderness Rectal exam: PRESENT: deferred Gentrourinary exam: ABSENT: indwelling catheter Extremities exam: PRESENT: full ROM. ABSENT: clubbing, joint swelling, pedal edema, tenderness Musculoskeletal exam: PRESENT: full ROM, normal inspection, other - Baseline is patient was ambulating well 6 months ago. He has experienced a lot over past several months with CHF, pneumonia, and wasn't acting right neurologically.. ABSENT: deformity, dislocation, tenderness Neurological exam: PRESENT: awake, oriented to person, oriented to place, other - LUE weakness with no sensation shoulder down. Has left upper extremity neglect. Feels me touching left thigh and moves leg spontaneously. No facial droop, tongue midline, no facial nerve weakness on my exam.. ABSENT: oriented to time, oriented to situation Psychiatric exam: PRESENT: other - restless, slightly agitated-daughter reports this is improved because he was out of it before TPA Skin exam: PRESENT: dry, intact, other - ecchymosis bilateral hands from IV sticks by EMS per daughter-weren't present beforehand skin cool to touch. ABSENT: rash, skin tears Laboratory/Radiographs Laboratory Results: 08/04/19 19:10 08/04/19 18:17 08/04/19 08/04/19 08/04/19 18:17 18:17 19:10 WBC Cancelled 5.4 RBC Cancelled 4.30 L Hgb Cancelled 8.5 L Hct Cancelled 26.6 L MCV Cancelled 62 L MCH Cancelled 19.7 L MCHC Cancelled 31.9 L RDW Cancelled 21.0 H Plt Count Cancelled 70 L Seg Neutrophils % Cancelled Not Reportable Sodium 140.1 Potassium 4.5 Chloride 112 H Carbon Dioxide 21 L Anion Gap 7 BUN 15 Creatinine 1.36 H Est GFR ( Amer) > 60 Glucose 142 H Calcium 8.9 Total Bilirubin 1.2 AST 35 Alkaline Phosphatase 984 H Total Protein 6.5 Albumin 3.7 08/04/19 08/04/19 18:17 18:17 Creatine Kinase 60 CK-MB (CK-2) 0.55 Troponin I 0.082 Impressions: Head CTA 08/04/19 00:00 IMPRESSION: 1. No intracranial aneurysm, stenosis, or branch occlusion. 2. No significant internal carotid artery stenosis by NASCET criteria. 3. Moderate left pleural effusion partially visualized. 4. Prominent mediastinal lymph nodes, indeterminate. Consider dedicated CT of the chest. Neck CTA 08/04/19 00:00 IMPRESSION: 1. No intracranial aneurysm, stenosis, or branch occlusion. 2. No significant internal carotid artery stenosis by NASCET criteria. 3. Moderate left pleural effusion partially visualized. 4. Prominent mediastinal lymph nodes, indeterminate. Consider dedicated CT of the chest. Chest X-Ray 08/04/19 17:53 IMPRESSION: Slight increase in small left basilar pleural effusion with compressive atelectasis/consolidation. Head CT 08/04/19 17:53 IMPRESSION: 1. No acute intracranial hemorrhage, mass, or evidence of acute territorial infarct. 2. Mild chronic small vessel ischemic change. EVIDENCE OF ACUTE STROKE: NO. Elbow X-Ray 08/04/19 17:54 IMPRESSION: NEGATIVE STUDY OF THE LEFT ELBOW. NO RADIOGRAPHIC EVIDENCE OF ACUTE INJURY. EKG: Second degree AV block Wenkebach. No evidence of cardiac ischemia or infarction. All labs, radiographs, diagnostic studies and EKGs were personally reviewed: Yes In addition, reports of radiographic and diagnostic studies were read: Yes Critical Time Critical Time (minutes): 95 -: The care of a critically ill patient is dynamic. This note represents a static moment in the admission process. Orders and treatments may be given simultaneously and urgently, and time is not representative personal service of the treatment process. This patient requires Critical Care secondary to life threatening organ or limb dysfunction. Without Critical Care services, the patient is at risk for increased mortality and morbidity.
[2019-08-05] MEDS ORDERED: FENTANYL CITRATE INJ/PF 100 MCG/2 ML AMPUL IV ONE (04:41)
[2019-08-05] MEDS ORDERED: MIDAZOLAM 2 MG/2 ML INJ IV ONE (04:41)
[2019-08-05 04:48] VITALS: BP 115/45
--- NOTE | 2019-08-05 05:15 | Operative Report ---
Bedside Procedure - History of Present Illness History of Present Illness: Mike Saxena is an 83-year-old male with PMH significant for CHF, 2nd degree Type I heart block, HLD, DM II, remote colon and left renal cancer s/p partial colectomy as well as left nephrectomy, BPH, hyperparathyroidism, and pneumonia 4 weeks ago treated with Levaquin who presented to [facility] with concern for an acute stroke. Mr Saxena reportedly fell several times at home 1 hr prior to arrival associated with slurred speech, right-sided facial droop, and left upper extremity weakness per the patient's daughter. The patient was reportedly A&O x4 and neurologically intact when EMS arrived on scene. Last known normal time was 15:50 PM per daughter. Patient reportedly "out of it" initially in the ED per the daughter and has shown signficant improvement in mental status. Patient received TPA in the ED after obtaining CT without as well as CTA head/neck evaluating for occlusion to determine if mechanical thrombectomy was an option. No intracranial hemorrhage or large vascular occlusion were identified. After the patient received TPA, it was noted that his Hgb is 8.5 and Plt 70k which the daughter is unable to explain. She thought his most recent Plt count was 150k and he was not hospitalized for his pneumonia where one would be performing serial phlebotomy. He has bilateral hand ecchymosis which is new as of today from EMS attempting IV access several times witnessed by the daughter. He also takes a baby ASA daily for which last dose was this morning. Patient to be admitted to ICU for post-TPA administration for frequent neurological monitoring. To note, Mr Saxena's primary out of hospital providers have reportedly been discussing possible pacemaker placement in Mr Saxena. He has recently visited Dr Barragan internal IM, Dr Silvano Oglesby [facility], and Dr Bain Nephrology. Change in condition: 02:05 AM I was informed by NICK Pompa that patient has dilated/fixed right pupil and less responsive. Exam confirmed GCS 8 (E1 V2 M5) which was previously GCS 11. Unable to clear his secretions, no gag reflex, no corneal reflex. Emergently intubated with 2 mg Versed (in 1 mg increments), 50 mcg Fentanyl (in 25 mcg increments), and 20 mg Etomidate. PROCEDURE: EMERGENT ENDOTRACHEAL INTUBATION INDICATION: INABILITY TO PROTECT AIRWAY WITH AUDIBLE AND VISUAL SECRETIONS POOLING IN BACK OF THROAT PROCEDURALIST: TUSHAR WOODWARD ANESTHESIA: 2 MG VERSED, 50 MCG FENTANYL, 20 MG ETOMIDATE COMPLICATIONS: NONE Patient with HOB 15 degrees to help prevent aspiration. 1 mg of Versed followed by 25 mcg of Fentanyl administered as when I attempted scissor maneuver of jaw, pt bit down indicating he would need some medication. Following the latter doses, he allowed me to gently introduce the video laryngoscope but had slight gagging when at the level of the epiglottis for which I withdraw a few centimeters and then administered another 1 mg of Versed followed by 25 mcg of Fentanyl. He then had adequate sedation but gagged slightly so I followed with 20 mg of Etomidate for which he no longer had a gag and allowed introduction of the laryngoscope easily into the hypopharynx. A 7.5 Fr ETT was then inserted via the mouth and visualized on top of the vocal cords. The metal stylet was re tracted about 6 cm and then the ETT was advanced through the cords to avoid excessive trauma given recent TPA administration. The balloon was inflated with the ETT at 23 cm at the teeth. Ambu bag and CO2 detector hooked up to ETT noting symmetrical chest expansion, bilateral breath sounds auscultated, colorimetric change, ET tube condensation. Immediately after intubation, the patient clenched his upper teeth onto his lower lip causing a small amount of bleeding for which 4x4's wrapped with tape as a soft bite block was created and applied between the teeth and secured to ETT with tape. A chest x-ray was obtained demonstrating successful placement of ETT, no pneumothorax. The ETT was slightly high and was advanced to 25 cm at the top teeth before transporting to radiology department for head CT to avoid accidental tube dislodgment. Indication for Procedure: Acute respiratory failure due to coma score 8, inability to protect airway Date: 08/05/19 Provider: HECTOR REMY
[2019-08-05] MEDS ORDERED: INSULIN REG, HUMAN 100 UNIT/ML 3 ML VIAL (PYX) SUBCUT SCH (06:00)
[2019-08-05 11:36] LABS: PATH REVIEW PATHOLOGIST REVIEWED
--- NOTE | 2019-08-19 00:07 | PDOC DISCHARGE SUMMARY ---
Impression - Admit/DC Date/PCP Admission Date/Primary Care Provider: 08/04/19 21:27 CARLY COLLIER MD Discharge Date: 08/05/19 - Discharge Diagnosis (1) Ischemic cerebrovascular accident (CVA) Is this a current diagnosis for this admission?: Yes (2) Hx of chronic congestive heart failure Is this a current diagnosis for this admission?: Yes (3) CKD (chronic kidney disease) stage 3, GFR 30-59 ml/min Is this a current diagnosis for this admission?: Yes (4) Diabetes mellitus with hyperglycemia Is this a current diagnosis for this admission?: Yes (5) Hx of hyperparathyroidism Is this a current diagnosis for this admission?: Yes (6) HLD (hyperlipidemia) Is this a current diagnosis for this admission?: Yes (7) BPH (benign prostatic hyperplasia) Is this a current diagnosis for this admission?: Yes (8) Abrasion of left arm Is this a current diagnosis for this admission?: Yes (9) Fall at home Is this a current diagnosis for this admission?: Yes (10) Mobitz (type) I (Wenckebach's) atrioventricular block Is this a current diagnosis for this admission?: Yes (11) Pleural effusion, left Is this a current diagnosis for this admission?: Yes (12) Emesis Is this a current diagnosis for this admission?: Yes (13) On mechanically assisted ventilation Is this a current diagnosis for this admission?: Yes (14) SDH (subdural hematoma) Is this a current diagnosis for this admission?: Yes (15) SAH (subarachnoid hemorrhage) Is this a current diagnosis for this admission?: Yes (16) Intraparenchymal hematoma of brain Is this a current diagnosis for this admission?: Yes (17) Midline shift of brain Is this a current diagnosis for this admission?: Yes (18) Intracranial hypertension Is this a current diagnosis for this admission?: Yes - Assessment Summary: Ischemic CVA s/p TPA for which neurological exam improved. Unfortunately, an adverse effect of TPA occurred resulting in right sided intracranial hemorrhage and [id number] midline shift of 1.7 cm. It is absolutely necessary for Mr Saxena to be transferred to a high level of care where Neurology and Neurosurgery services are available to care for Mr Saxena. [facility] has accepted Mr Saxena and his daughter was notified. 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 Mr Saxena reportedly fell several times at home 1 hr prior to arrival associated with slurred speech, right-sided facial droop, and left upper extremity weakness per the patient's daughter. The patient was reportedly A&O x4 and neurologically intact when EMS arrived on scene. Last known normal time was 15:50 PM per daughter. Patient reportedly "out of it" initially in the ED per the daughter and has shown signficant improvement in mental status. Patient received TPA in the ED after obtaining CT without as well as CTA head/neck evaluating for occlusion to determine if mechanical thrombectomy was an option. No intracranial hemorrhage or large vascular occlusion were identified. After the patient received TPA, it was noted that his Hgb is 8.5 and Plt 70k which the daughter is unable to explain. She thought his most recent Plt count was 150k and he was not hospitalized for his pneumonia where one would be performing serial phlebotomy. He has bilateral hand ecchymosis which is new as of today from EMS attempting IV access several times witnessed by the daughter. He also takes a baby ASA daily for which last dose was this morning. Patient to be admitted to ICU for post-TPA administration for frequent neurological monitoring. To note, Mr Saxena's primary out of hospital providers have reportedly been discussing possible pacemaker placement in Mr Saxena. He has recently visited Dr Barragan internal IM, Dr Silvano Oglesby [facility], and Dr Bain Nephrology. Hospital Course Hospital Course: Hospital Course: Mr Saxena was admitted to ICU for serial neurological exams. His GCS was 11 (E1 V4 M6) when I encountered him in the ED post-TPA, which was reportedly an improvement in his exam per his daughter whom was at bedside, as well as his RN. Upon admission to the ICU, his GCS was unchanged. He received IV fluid for hydration as he was hypovolemic and hyperdynamic with good bi-ventricular contraction on [id number] ultrasound performed by myself. His tachycardia improved with IV fluid from HR 120's down to 70's, remaining in 2nd degree Wenkebach heart block which is a known chronic arrhythmia prior to admission. His exam at 02:05 AM revealed he was minimally responsive with a dilated, non- reactive right pupil of 6mm for which I was notified. He was subsequently intubated for a GCS of 8 (E1 V2 M5) with an inability to clear his oral secretions. He then went to CT demonstrating a large amount of ICH to include SAH, IPH, SDH, IVH for which I arranged transfer to [facility] via air lift and notified his daughter, Shy Oglesby. He was transferred to a [facility] level of care for Neurological care with the capabilities of Neurosurgical intervention. Accepting physician is Daniel Cardoso with Neurology [employer]. Claire, FELI [employer] whom I spoke with wanted 10 of Cryoprecipitate which was hung as the patient left [place], 1g of Keppra, and 1L of normal saline followed by Mannitol which were all administered. His vital signs were stable at time of transfer with a temp of 97.2 axillary, HR 77, BP 106/59 MAP 73, RR 14, SPO2 100% on 30% FiO2. I personally asked transport to keep his head of bed 60 [address] Kapoor aware of the above. Physical Exam Vital Signs: Temp Pulse Resp BP Pulse Ox 97.2 F 111 H 16 115/45 L 100 08/04/19 23:14 08/05/19 03:05 08/05/19 04:06 08/05/19 04:21 08/05/19 04:20 Intake & Output 08/03/19 08/04/19 08/05/19 06:59 06:59 06:59 Intake Total 1590 Output Total 125 Balance 1465 Weight 79.6 kg General appearance: PRESENT: no acute distress, well-nourished Head exam: PRESENT: atraumatic, normocephalic Eye exam: PRESENT: conjunctiva pink, other - R pupil 6 mm non-reactive, L pupil 3 mm reactive. ABSENT: periorbital swelling, scleral icterus Ear exam: PRESENT: normal external ear exam Mouth exam: PRESENT: neck supple Teeth exam: ABSENT: dental tenderness Throat exam: ABSENT: post pharyngeal erythema Neck exam: PRESENT: full ROM. ABSENT: JVD, lymphadenopathy, tracheal deviation Respiratory exam: PRESENT: clear to auscultation spencer - diminished left lower lobe from pleural effusion, symmetrical, unlabored, other - on mechanical ventilator, ETT 25 cm at teeth Cardiovascular exam: PRESENT: irregular rhythm - 2nd degree AV block, Wenkebach, +S1, +S2 Pulses: PRESENT: normal radial pulses, +2 pedal pulses bilateral Vascular exam: PRESENT: normal capillary refill GI/Abdominal exam: PRESENT: normal bowel sounds, soft, other - avoided OG tube placement after intubation due to TPA. ABSENT: distended, tenderness Rectal exam: PRESENT: deferred Gentrourinary exam: PRESENT: other - avoided catheterization due to TPA Extremities exam: PRESENT: full ROM. ABSENT: pedal edema Musculoskeletal exam: PRESENT: full ROM, normal inspection. ABSENT: deformity Neurological exam: PRESENT: other - intubated Skin exam: PRESENT: abrasion - left elbow region, intact, other - cool to touch. ABSENT: jaundice Results Laboratory Results: WBC 5.4 10^3/uL (4.0-10.5) 08/04/19 19:10 RBC 4.30 10^6/uL (4.35-5.55) L 08/04/19 19:10 Hgb 8.5 g/dL (13.5-17.0) L 08/04/19 19:10 Hct 26.6 % (37.9-51.0) L 08/04/19 19:10 MCV 62 fl (80-97) L 08/04/19 19:10 MCH 19.7 pg (27.0-33.4) L 08/04/19 19:10 MCHC 31.9 g/dL (32.0-36.0) L 08/04/19 19:10 RDW 21.0 % (11.5-14.0) H 08/04/19 19:10 Plt Count 70 10^3/uL (150-450) L 08/04/19 19:10 Lymph % (Auto) Not Reportable 08/04/19 19:10 [place] % (Auto) Not Reportable 08/04/19 19:10 Eos % (Auto) Not Reportable 08/04/19 19:10 Baso % (Auto) Not Reportable 08/04/19 19:10 Absolute Neuts (auto) Not Reportable 08/04/19 19:10 Absolute Lymphs (auto) Not Reportable 08/04/19 19:10 Absolute Monos (auto) Not Reportable 08/04/19 19:10 Absolute Eos (auto) Not Reportable 08/04/19 19:10 Absolute Basos (auto) Not Reportable 08/04/19 19:10 Total Counted 100 08/04/19 19:10 Seg Neutrophils % Not Reportable 08/04/19 19:10 Seg Neuts % (Manual) 61 % (42-78) 08/04/19 19:10 Band Neutrophils % 4 % (3-5) 08/04/19 19:10 Lymphocytes % (Manual) 24 % (13-45) 08/04/19 19:10 Monocytes % (Manual) 10 % (3-13) 08/04/19 19:10 Eosinophils % (Manual) 1 % (0-6) 08/04/19 19:10 Basophils % (Manual) 0 % (0-2) 08/04/19 19:10 Abs Neuts (Manual) 3.5 10^3/uL (1.7-8.2) 08/04/19 19:10 Abs Lymphs (Manual) 1.3 10^3/uL (0.5-4.7) 08/04/19 19:10 Abs Monocytes (Manual) 0.5 10^3/uL (0.1-1.4) 08/04/19 19:10 Absolute Eos (Manual) 0.1 10^3/uL (0.0-0.6) 08/04/19 19:10 Abs Basophils (Manual) 0.0 10^3/uL (0.0-0.2) 08/04/19 19:10 Platelet Estimate Cancelled 08/04/19 18:17 Platelet Comment DECREASED 08/04/19 19:10 Polychromasia 1+ 08/04/19 19:10 Hypochromasia 2+ 08/04/19 19:10 Poikilocytosis 1+ 08/04/19 19:10 Anisocytosis 2+ 08/04/19 19:10 Microcytosis 2+ 08/04/19 19:10 Tear Drop Cells 1+ 08/04/19 19:10 Abundio Cells 1+ 08/04/19 19:10 PT 16.5 SEC (11.4-15.4) H 08/04/19 18:17 INR 1.32 08/04/19 18:17 APTT 61.0 SEC (23.5-35.8) H 08/04/19 18:17 Carbonic Acid 0.96 mmol/L (1.05-1.35) L 08/05/19 03:20 HCO3/H2CO3 Ratio 17:1 08/05/19 03:20 ABG pH 7.33 (7.35-7.45) L 08/05/19 03:20 ABG pCO2 31.8 mmHg (35-45) L 08/05/19 03:20 ABG pO2 97.0 mmHg (80-100) 08/05/19 03:20 ABG HCO3 16.4 mmol/L (20-24) L 08/05/19 03:20 ABG Total CO2 17.3 mmol/L (23-27) L 08/05/19 03:20 ABG O2 Saturation 97.0 % (94-98) 08/05/19 03:20 ABG Base Excess -8.8 mmol/L 08/05/19 03:20 FiO2 30% 08/05/19 03:20 Sodium 140.1 mmol/L (137-145) 08/04/19 18:17 Potassium 4.5 mmol/L (3.6-5.0) 08/04/19 18:17 Chloride 112 mmol/L (98-107) H 08/04/19 18:17 Carbon Dioxide 21 mmol/L (22-30) L 08/04/19 18:17 Anion Gap 7 (5-19) 08/04/19 18:17 BUN 15 mg/dL (7-20) 08/04/19 18:17 Creatinine 1.36 mg/dL (0.52-1.25) H 08/04/19 18:17 Est GFR ( Amer) > 60 (>60) 08/04/19 18:17 Est GFR (MDRD) Non-Af 50 (>60) L 08/04/19 18:17 Glucose 142 mg/dL (75-110) H 08/04/19 18:17 Calcium 8.9 mg/dL (8.4-10.2) 08/04/19 18:17 Total Bilirubin 1.2 mg/dL (0.2-1.3) 08/04/19 18:17 Direct Bilirubin 0.0 mg/dL (0.0-0.4) 08/04/19 18:17 Neonat Total Bilirubin Not Reportable 08/04/19 18:17 Neonat Direct Bilirubin Not Reportable 08/04/19 18:17 Neonat Indirect Bili Not Reportable 08/04/19 18:17 AST 35 U/L (17-59) 08/04/19 18:17 ALT 10 U/L (<50) 08/04/19 18:17 Alkaline Phosphatase 984 U/L (38-126) H 08/04/19 18:17 Creatine Kinase 60 U/L (55-170) 08/04/19 18:17 CK-MB (CK-2) 0.55 ng/mL (<4.55) 08/04/19 18:17 Troponin I 0.082 ng/mL 08/04/19 18:17 Total Protein 6.5 g/dL (6.3-8.2) 08/04/19 18:17 Albumin 3.7 g/dL (3.5-5.0) 08/04/19 18:17 Gastric Occult Blood POSITIVE (NEGATIVE) 08/04/19 23:25 Slides for Path Review Cancelled 08/04/19 18:17 Blood Type O POSITIVE 08/05/19 03:49 Antibody Screen NEGATIVE 08/05/19 03:49 08/04/19 18:17 CK-MB (CK-2) 0.55 Troponin I 0.082 EKG Comments: 2nd degree Wenkebach heart block, no evidence of acute ischemia Impressions: Head CTA 08/04/19 00:00 IMPRESSION: 1. No intracranial aneurysm, stenosis, or branch occlusion. 2. No significant internal carotid artery stenosis by NASCET criteria. 3. Moderate left pleural effusion partially visualized. 4. Prominent mediastinal lymph nodes, indeterminate. Consider dedicated CT of the chest. Neck CTA 08/04/19 00:00 IMPRESSION: 1. No intracranial aneurysm, stenosis, or branch occlusion. 2. No significant internal carotid artery stenosis by NASCET criteria. 3. Moderate left pleural effusion partially visualized. 4. Prominent mediastinal lymph nodes, indeterminate. Consider dedicated CT of the chest. Chest X-Ray 08/04/19 17:53 IMPRESSION: Slight increase in small left basilar pleural effusion with compressive atelectasis/consolidation. Head CT 08/04/19 17:53 IMPRESSION: 1. No acute intracranial hemorrhage, mass, or evidence of acute territorial infarct. 2. Mild chronic small vessel ischemic change. EVIDENCE OF ACUTE STROKE: NO. Elbow X-Ray 08/04/19 17:54 IMPRESSION: NEGATIVE STUDY OF THE LEFT ELBOW. NO RADIOGRAPHIC EVIDENCE OF ACUTE INJURY. Head CT 08/05/19 02:02 IMPRESSION: Extensive acute areas of hemorrhage with significant midline shift. Plan Plan of Treatment: -Transfer to higher level of care. -Elevate head of bed to 60 degrees. -Head midline to facilitate jugular drainage and reduce intracranial HTN -Consider placing hill catheter and OG tube once Cryoprecipitate finished, especially since he just received Mannitol prior to transfer. -Recommend contacting his Food Service Order Clerk/CHF Dr Silvano Oglesby in [place] later this morning to hear recent echocardiogram results and learn more about his plan for the 2nd degree AV block. -Re-check Troponin I (discussed with Tahir), though it appears it was likely elevated due to demand ischemia from hypovolemia. -If renal function worsens post-IV contrast, may need Nephrology consultation. Sees Dr Bain in [place]. Goals: -SBP goal has now changed to <140 mm Hg given hemorrhage. -Serum Na+ goal now 145-150 to prevent worsening cerebral edema that will ensue. Time Spent: Less than 30 Minutes Stroke Is this a Stroke Patient?: Yes Stroke Pt being discharged on Anti-thrombolytic therapy?: No Reason(s) for not prescribing Anti-thrombolytic therapy:: Adverse reaction to drug - complication from TPA with intracranil hemorrhage Stroke Pt being discharged on Anti-coagulation therapy?: No Reason(s) for not prescribing Anti-coagulation therapy:: Adverse reaction to drug - complication from TPA with intracranil hemorrhage Stroke Pt being discharged on Statins?: No Reason(s) for not prescribing Statins therapy:: Medical Contraindication - Due to acute comatose state from intracranial hemorrhage. It was signed out to [facility] care team to start statin therapy when clinically indicated. Acute Heart Failure - Is this a Heart Failure Patient?: Yes Documentation of LVEF assessment?: No, Document reason - Has recent echocardiogram at [employer] office which can be obtained during the day time which I communicated with Tahir. His chronic CHF was not a significant component during this brief admission. LVEF - Reason: see above LVEF: LVEF Greater Than 40% - presumed based on bedside informal POCUS performed by myself Anticoagulant Therapy: N/A
== END 2019-08-05 04:33 | disposition short-term general hospital (02) | DRG 61 ==
LOC: ER 17:49 → EH 21:27 → ICU 23:27
PROVIDERS: ADMIT Anesthesiology; ATTEND Anesthesiology
PROC: 3E03317 Introduction of Other Thrombolytic into Peripheral Vein, Percutaneous Approach (ICD-10-PCS; principal; 2019-08-05)
PROC: 5A1935Z Respiratory Ventilation, Less than 24 Consecutive Hours (ICD-10-PCS; 2019-08-05)
PROC: 0BH17EZ Insertion of Endotracheal Airway into Trachea, Via Natural or Artificial Opening (ICD-10-PCS; 2019-08-05)
PROC: 30233M1 Transfusion of Nonautologous Plasma Cryoprecipitate into Peripheral Vein, Percutaneous Approach (ICD-10-PCS; 2019-08-05)
DX: I63.9 Cerebral infarction, unspecified (principal); I60.9 Nontraumatic subarachnoid hemorrhage, unspecified; I62.00 Nontraumatic subdural hemorrhage, unspecified; R40.2112 Coma scale, eyes open, never, at arrival to emergency department; G81.94 Hemiplegia, unspecified affecting left nondominant side; I62.9 Nontraumatic intracranial hemorrhage, unspecified; J90 Pleural effusion, not elsewhere classified; I24.8 Other forms of acute ischemic heart disease; I44.1 Atrioventricular block, second degree; E78.5 Hyperlipidemia, unspecified; N40.0 Benign prostatic hyperplasia without lower urinary tract symptoms; E21.3 Hyperparathyroidism, unspecified; R29.6 Repeated falls; R47.81 Slurred speech; R29.810 Facial weakness; N18.3 Chronic kidney disease, stage 3 (moderate); E11.65 Type 2 diabetes mellitus with hyperglycemia; E11.22 Type 2 diabetes mellitus with diabetic chronic kidney disease; S40.812A Abrasion of left upper arm, initial encounter; W19.XXXA Unspecified fall, initial encounter; R29.708 NIHSS score 8; T45.615A Adverse effect of thrombolytic drugs, initial encounter; Y92.009 Unspecified place in unspecified non-institutional (private) residence as the place of occurrence of the external cause; R11.10 Vomiting, unspecified; G93.2 Benign intracranial hypertension; R40.2362 Coma scale, best motor response, obeys commands, at arrival to emergency department; R40.2242 Coma scale, best verbal response, confused conversation, at arrival to emergency department; Z85.038 Personal history of other malignant neoplasm of large intestine; Z85.53 Personal history of malignant neoplasm of renal pelvis; Z90.5 Acquired absence of kidney; Z90.49 Acquired absence of other specified parts of digestive tract; Z79.4 Long term (current) use of insulin
CPT/HCPCS: 31500; 36415; 36430; 36600; 70450; 70496; 70498; 71045; 80053; 82271; 82550; 82553; 82803; 82962; 84484; 85025; 85610; 85730; 86850; 86900; 86901; 93005; 93010; 94002; 96365; 96375; 99291; 99292; C9113; J1953; J2150; J2250; J2405; J2550; J2997; J3010; J7030; J7120